=== PATIENT | male | born 1985 | race Two or more races ===

== ENCOUNTER 2018-01-22 20:36 | Inpatient (IN) | payer OTHER ==
[~2018-01-22] VITALS: Ht 162.6 cm; Wt 142.0 kg
[~2018-01-22 20:36] MED LIST: N; NASONEX17 GM NS; PREDNISONE50 MG PO; XYZAL5 MG PO
[2018-01-22] MEDS ORDERED: PREDNISOLO15 MG/5 ML (21:04)
[2018-01-22] MEDS ORDERED: FLUDROCORTISON0.1 MG (21:04)
[2018-01-25] MEDS ORDERED: CIPRO500 MG PO (18:19)
[2018-01-25] MEDS ORDERED: INTESTINEX680 M1 PO (18:19)
[2018-01-25] MEDS ORDERED: FLAGYL500MG PO (18:19)
[2018-01-25] MEDS ORDERED: ZANTAC150 MG PO (18:19)
== END 2018-01-25 18:36 | disposition home or self-care (01) | DRG 392 ==
LOC: ER 20:36 → SEC-K 01-23 14:12 → SURH 01-23 14:12
PROC: 8E0ZXY6 Isolation (ICD-10-PCS; principal; 2018-01-23)
DX: A05.9 Bacterial foodborne intoxication, unspecified (principal); E86.0 Dehydration; E87.6 Hypokalemia; E25.0 Congenital adrenogenital disorders associated with enzyme deficiency; Z79.52 Long term (current) use of systemic steroids

== ENCOUNTER 2021-05-19 02:45 | Emergency (ER) | payer OTHER ==
[~2021-05-19] VITALS: Ht 162.6 cm; Wt 59.0 kg
[~2021-05-19 02:45] MED LIST changes: +CIPRO500 MG PO; +FLAGYL500MG PO; +FLUDROCORTISON0.1 MG; +INTESTINEX680 M1 PO; +PREDNISOLO15 MG/5 ML; +ZANTAC150 MG PO
[2021-05-19] MEDS ORDERED: NAPROXEN375 MG PO (05:46)
[2021-05-19] MEDS ORDERED: PEPCID AC20 MG PO (05:46)
== END 2021-05-19 05:58 | disposition home or self-care (01) ==
LOC: ER 02:45
DX: R10.84 Generalized abdominal pain (principal); R51.9 Headache, unspecified